=== PATIENT | female | born 1965 | race African-American/Black ===

== ENCOUNTER → 2016-12-11 17:09 | Emergency (ER) | payer OTHER ==
[~2016-12-11 17:09] MED LIST: AMB10 PO; IRON325 MG PO; NEUR100 PO
== END | disposition home or self-care (01) ==
LOC: ER 17:09
DX: I10 Essential (primary) hypertension (principal); F17.200 Nicotine dependence, unspecified, uncomplicated; J30.9 Allergic rhinitis, unspecified; Z79.899 Other long term (current) drug therapy
CPT/HCPCS: 99283